=== PATIENT | male | born 1975 | race American Indian/Alaskan Native ===

== ENCOUNTER 2017-01-21 16:13 | Emergency (ER) | payer OTHER ==
--- NOTE | 2017-01-21 20:04 | Emergency Department Report ---
ED ENT HPI - General Chief complaint: Earache Stated complaint: RT EARACHE Time Seen by Provider: 01/21/17 19:57 Source: patient Mode of arrival: Ambulatory Limitations: No Limitations - History of Present Illness Initial comments: Pt reports R ear pain and drainage x 2 days. No URI sx or fevers. MD complaint: ear pain -: Gradual, days(s) (2) Location: R ear Severity: moderate Quality: aching Consistency: constant Improves with: none Worsens with: none Associated Symptoms: discharge from ear. denies: fever, cough, sore throat - Related Data Previous Rx's Medication Instructions Recorded Last Taken Type Neomy/Polymyx B/Hc Otic Susp 4 drops AD TID #1 bottle 01/21/17 Unknown Rx [Cortisporin (Otic) Susp] Allergies Allergy/AdvReac Type Severity Reaction Status Date / Time amoxicillin Allergy Hives Verified 01/21/17 17:07 ED Dental HPI - General Chief complaint: Earache Stated complaint: RT EARACHE Time Seen by Provider: 01/21/17 19:57 Source: patient Mode of arrival: Ambulatory Limitations: No Limitations - Related Data Previous Rx's Medication Instructions Recorded Last Taken Type Neomy/Polymyx B/Hc Otic Susp 4 drops AD TID #1 bottle 01/21/17 Unknown Rx [Cortisporin (Otic) Susp] Allergies Allergy/AdvReac Type Severity Reaction Status Date / Time amoxicillin Allergy Hives Verified 01/21/17 17:07 ED Review of Systems ROS: Stated complaint: RT EARACHE Other details as noted in HPI Comment: All other systems reviewed and negative Constitutional: denies: chills, fever Eyes: denies: eye pain, eye discharge, vision change ENT: ear pain. denies: throat pain Respiratory: denies: cough, shortness of breath, wheezing Cardiovascular: denies: chest pain, palpitations Endocrine: no symptoms reported Gastrointestinal: denies: abdominal pain, nausea, diarrhea Genitourinary: denies: urgency, dysuria Musculoskeletal: denies: back pain, joint swelling, arthralgia Skin: denies: rash, lesions Neurological: denies: headache, weakness, paresthesias Psychiatric: denies: anxiety, depression Hematological/Lymphatic: denies: easy bleeding, easy bruising ED Past Medical Hx - Past Medical History Previous Medical History?: No - Surgical History Additional Surgical History: L wrist - Social History Smoking Status: Current Every Day Smoker Substance Use Type: None - Medications Home Medications: Home Medications Medication Instructions Recorded Confirmed Last Taken Type Neomy/Polymyx B/Hc Otic Susp 4 drops AD TID #1 bottle 01/21/17 Unknown Rx [Cortisporin (Otic) Susp] ED Physical Exam - General Limitations: No Limitations General appearance: alert, in no apparent distress - Head Head exam: Present: atraumatic, normocephalic - Eye Eye exam: Present: normal appearance - ENT ENT exam: Present: mucous membranes moist, other (R ear canal shows findings c/ w otitis externa. TM normal.) - Neck Neck exam: Present: normal inspection - Respiratory Respiratory exam: Present: normal lung sounds bilaterally. Absent: respiratory distress - Cardiovascular Cardiovascular Exam: Present: regular rate, normal rhythm. Absent: systolic murmur, diastolic murmur, rubs, gallop - GI/Abdominal GI/Abdominal exam: Present: soft, normal bowel sounds - Rectal Rectal exam: Present: deferred - Extremities Exam Extremities exam: Present: normal inspection - Back Exam Back exam: Present: normal inspection - Neurological Exam Neurological exam: Present: alert, oriented X3 - Psychiatric Psychiatric exam: Present: normal affect, normal mood - Skin Skin exam: Present: warm, dry, intact, normal color. Absent: rash ED Course Vital Signs 01/21/17 17:04 Temperature 98.6 F Pulse Rate 80 Respiratory 18 Rate Blood Pressure 153/92 O2 Sat by Pulse 98 Oximetry - Reevaluation(s) Reevaluation #1: 01/21/17 20:02 NAD, stable for d/c. ED Medical Decision Making - Medical Decision Making Pt with OE. Will treat. - Differential Diagnosis OM, OE Critical care attestation.: If time is entered above; I have spent that time in minutes in the direct care of this critically ill patient, excluding procedure time. ED Disposition Clinical Impression: Right otitis externa Qualifiers: Otitis externa type: unspecified type Chronicity: acute Qualified Code(s): H60.501 - Unspecified acute noninfective otitis externa, right ear Disposition: DISCHARGED TO HOME OR SELFCARE Is pt being admited?: No Condition: Good Instructions: Otitis Externa (ED) Prescriptions: Neomy/Polymyx B/Hc Otic Susp [Cortisporin (Otic) Susp] 4 drops AD TID #1 bottle Referrals: PRIMARY CARE, [Primary Care Provider] - 3-5 Days Time of Disposition: 20:03
[2017-01-21 20:10] VITALS: BP 144/88
== END 2017-01-21 20:16 | disposition home or self-care (01) ==
LOC: ED 16:13
DX: H60.501 Unspecified acute noninfective otitis externa, right ear (principal); F17.200 Nicotine dependence, unspecified, uncomplicated; Z88.2 Allergy status to sulfonamides; Z98.890 Other specified postprocedural states
CPT/HCPCS: 99282

== ENCOUNTER 2017-11-23 00:39 | Emergency (ER) | payer OTHER ==
--- NOTE | 2017-11-23 04:52 | Emergency Department Report ---
HPI - General Chief Complaint: Dental/Oral Time Seen by Provider: 11/23/17 04:44 - HPI HPI: Patient here reports that he has toothache 2 days. He said he does not have a dentist. Pain is located to his right upper back tooth he said it needs to be pulled. Pain is 10 out of 10 and achy worse with eating. Denies any fever or chills. Denies any swelling to face. Denies any sore throat, nasal congestion or runny nose. Denies any cough or chest pain. Denies any shortness of breath. Patient said he has dental problems but he doesn't have a dentist and is having a lot of pain unlike to have some pain medication. ED Past Medical Hx - Past Medical History Previous Medical History?: No - Surgical History Past Surgical History?: Yes Additional Surgical History: L wrist - Family History Family history: hypertension - Social History Smoking Status: Current Every Day Smoker Substance Use Type: Alcohol - Medications Home Medications: Home Medications Medication Instructions Recorded Confirmed Last Taken Type Neomy/Polymyx B/Hc Otic Susp 4 drops AD TID #1 bottle 01/21/17 Unknown Rx [Cortisporin (Otic) Susp] Ciprofloxacin HCl [Ciprofloxacin 750 mg PO BID #20 tablet 02/04/17 Unknown Rx TAB] Fluconazole [Diflucan TAB] 200 mg PO QDAY #2 tablet 02/04/17 Unknown Rx Acetaminophen/Codeine [Tylenol 1 tab PO Q6H PRN 3 Days #12 tab 11/23/17 Unknown Rx /Codeine # 3 tab] Clindamycin HCl 300 mg PO Q8H 10 Days #30 capsule 11/23/17 Unknown Rx Ibuprofen [Motrin] 600 mg PO Q8H PRN 7 Days #21 tablet 11/23/17 Unknown Rx ED Review of Systems ROS: Stated complaint: TOOTHACHE Other details as noted in HPI Comment: All other systems reviewed and negative Constitutional: no symptoms reported ENT: dental pain. denies: ear pain, throat pain, congestion Cardiovascular: denies: chest pain, palpitations, dyspnea on exertion, edema, syncope, paroxysmal nocturnal dyspnea Gastrointestinal: denies: abdominal pain, nausea, vomiting, diarrhea, constipation Musculoskeletal: denies: back pain, joint swelling, arthralgia, myalgia Skin: denies: rash Neurological: denies: headache, weakness, numbness, paresthesias, confusion, abnormal gait, vertigo Physical Exam - Physical Exam Vital Signs: Vital Signs 11/23/17 01:46 Temperature 98.4 F Pulse Rate 95 H Respiratory 18 Rate Blood Pressure 134/92 O2 Sat by Pulse 96 Oximetry General: This is a 42-year-old male well-nourished well-developed in no acute distress. Physical Exam: Head: Normocephalic atraumatic Ears:BIateral TM pearly palma. Aníbal EAC with normal exam. No mastoid bone tenderness. Mouth: Moist, no pharyngeal erythema or exudate . No tonsillar erythema or exudate. UVULA midline and oral airways patent. No peritonsillar abscess. Patient with ecchymosis is teeth missing. Noted fractured tooth to #1 without any pulp exposure. Positive gingivitis. Positive caries. Neck: Nontender to palpate, supple, normal range of motion. No adenopathy. No c- spine tenderness. Nose: Bilateral nasal mucosa normal. maxillary and frontal sinuses non-tender to palpate. Eyes: Sclerae and conjunctiva without injection. Bilateral pupils equal and reactive to light. Bilateral lids are normal. Normal accommodation.BEOMI Lungs: Clear to auscultate bilaterally, no rhonchi wheezes or rales. Normal work of breathing and no chest wall tenderness CV: S1, S2. Regular rate and rhythm negative murmur. Capillary refill is less than 3 seconds Skin: Clean dry and intact, no rashes or lesions Psych: Normal mood and behavior ED Course Vital Signs 11/23/17 01:46 Temperature 98.4 F Pulse Rate 95 H Respiratory 18 Rate Blood Pressure 134/92 O2 Sat by Pulse 96 Oximetry - Reevaluation(s) Reevaluation #1: 11/23/17 06:33 Patient given Motrin 800 mg emergency room for toothache. ED Medical Decision Making - Medical Decision Making ED course: In here complaining of toothache that started been ongoing for a while. Found to have many teeth missing and with gingivitis, fractured tooth. I discussed the patient's that I can start him on antibiotic and manage his pain but he will need to go to a dentist to fix the underlying problem I discussed with him if he neglected to do so he can end up with heart disease, heart valve disease and her infection in his blood activity to organ failure and ultimately . I discussed with him FOR him to a dental clinic in the community and he will need to pay a sliding scale fee based on his income and they can evaluate and treat him appropriately. It was undescended discharge instruction and treatment plan. He was given Motrin 800 mg when necessary emergency room for pain and patient discharged from ED in stable condition with prescription for penicillin V, Motrin and Tylenol 3 and to follow-up at [facility]. Critical care attestation.: If time is entered above; I have spent that time in minutes in the direct care of this critically ill patient, excluding procedure time. ED Disposition Clinical Impression: Tooth ache, Gingivitis, Dental cavity Fracture, tooth Qualifiers: Encounter type: initial encounter Fracture type: closed Qualified Code(s): S02.5XXA - Fracture of tooth (traumatic), initial encounter for closed fracture Disposition: TO HOME OR SELFCARE Is pt being admited?: No Does the pt Need Aspirin: No Condition: Stable Instructions: Dental Caries (ED), Toothache (ED), Gingivitis (ED) Additional Instructions: Please follow discharge instructions and follow up with [facility] for management of inflamed gums, fractured tooth and dental caries with toothache. Failure to do this could lead to worsening gum disease, infection in your blood, infection in your heart, organ failure and ultimately . Please try and stop smoking as this is not good for your gums or in general. Do not drive or operate heavy machinery while taking Tylenol No. 3 as this medication causes drowsiness Gargle with Listerine mouthwash twice daily practice good oral hygiene by flossing daily with the remainder of your teeth that you have left. Prescriptions: Acetaminophen/Codeine [Tylenol /Codeine # 3 tab] 1 tab PO Q6H PRN 3 Days #12 tab PRN Reason: Toothache Clindamycin HCl 300 mg PO Q8H 10 Days #30 capsule Ibuprofen [Motrin] 600 mg PO Q8H PRN 7 Days #21 tablet PRN Reason: Pain Referrals: [facility] [Outside] - 11/27/17 Forms: Work/School Release Form(ED)
[2017-11-23] MEDS ORDERED: MOTRIN PO ONE (07:00)
[2017-11-23 07:11] VITALS: BP 123/80
== END 2017-11-23 07:12 | disposition home or self-care (01) ==
LOC: ED 00:39
DX: S02.5XXA Fracture of tooth (traumatic), initial encounter for closed fracture (principal); K02.9 Dental caries, unspecified; K05.10 Chronic gingivitis, plaque induced; F17.200 Nicotine dependence, unspecified, uncomplicated; Z88.1 Allergy status to other antibiotic agents; X58.XXXA Exposure to other specified factors, initial encounter; Y93.89 Activity, other specified; Y99.8 Other external cause status; Y92.89 Other specified places as the place of occurrence of the external cause
CPT/HCPCS: 99282

== ENCOUNTER 2021-07-30 18:42 | Emergency (ER) | payer SELFPAY ==
[2021-07-30 19:54] VITALS: BP 153/89
[2021-07-30] MEDS ORDERED: HYDROcodone/ACETAMINOPHEN 5-325 MG TAB PO ONE (19:56)
--- NOTE | 2021-07-30 20:16 | Emergency Department Report ---
ED ENT HPI - General Chief complaint: Earache Stated complaint: EAR INFECTION Time Seen by Provider: 07/30/21 20:07 Source: patient Mode of arrival: Ambulatory Limitations: No Limitations - History of Present Illness Initial comments: 45-year-old -Iranian male presents to the emergency room complaining of left ear pain and drainage for the last 2 days. Patient reports that he takes a shower in washes his ears out but sometimes water stays. 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 Patient states he noticed drainage with the odor. Patient denies any fever chills no nausea no vomiting. Patient does report has an allergy to amoxicillin and he smokes cigarettes. MD complaint: ear pain Onset/Timin -: days(s) Location: L ear Severity scale (0 -10): 7 Quality: stabbing, sharp Consistency: intermittent Improves with: none Worsens with: none Context- Ear: other (Labs were ordered to sit in his ears from shower) Associated Symptoms: discharge from ear (Left) - Related Data Previous Rx's Medication Instructions Recorded Last Taken Type Ciprofloxacin HCl [Ciprofloxacin 750 mg PO BID #20 tablet 02/04/17 Unknown Rx TAB] Fluconazole [Diflucan TAB] 200 mg PO QDAY #2 tablet 02/04/17 Unknown Rx Acetaminophen/Codeine [Tylenol 1 tab PO Q6H PRN 3 Days #12 tab 11/23/17 Unknown Rx /Codeine # 3 tab] Clindamycin HCl 300 mg PO Q8H 10 Days #30 capsule 11/23/17 Unknown Rx Ciprofloxacin HCl [Ciprofloxacin 750 mg PO BID 7 Days #14 tablet 07/30/21 Unknown Rx TAB] Ibuprofen [Motrin 600 MG tab] 600 mg PO Q8H PRN 7 Days #21 tablet 07/30/21 Unknown Rx Neomy/Polymyx B/Hc Otic Susp 4 drops AD TID #1 bottle 07/30/21 Unknown Rx [Cortisporin (Otic) Susp] Allergies Allergy/AdvReac Type Severity Reaction Status Date / Time amoxicillin Allergy Hives Verified 01/21/17 17:07 ED Dental HPI - General Chief complaint: Earache Stated complaint: EAR INFECTION Time Seen by Provider: 07/30/21 20:07 Source: patient Mode of arrival: Ambulatory Limitations: No Limitations - Related Data Previous Rx's Medication Instructions Recorded Last Taken Type Ciprofloxacin HCl [Ciprofloxacin 750 mg PO BID #20 tablet 02/04/17 Unknown Rx TAB] Fluconazole [Diflucan TAB] 200 mg PO QDAY #2 tablet 02/04/17 Unknown Rx Acetaminophen/Codeine [Tylenol 1 tab PO Q6H PRN 3 Days #12 tab 11/23/17 Unknown Rx /Codeine # 3 tab] Clindamycin HCl 300 mg PO Q8H 10 Days #30 capsule 11/23/17 Unknown Rx Ciprofloxacin HCl [Ciprofloxacin 750 mg PO BID 7 Days #14 tablet 07/30/21 Unknown Rx TAB] Ibuprofen [Motrin 600 MG tab] 600 mg PO Q8H PRN 7 Days #21 tablet 07/30/21 Unknown Rx Neomy/Polymyx B/Hc Otic Susp 4 drops AD TID #1 bottle 07/30/21 Unknown Rx [Cortisporin (Otic) Susp] Allergies Allergy/AdvReac Type Severity Reaction Status Date / Time amoxicillin Allergy Hives Verified 01/21/17 17:07 ED Review of Systems ROS: Stated complaint: EAR INFECTION Other details as noted in HPI Comment: All other systems reviewed and negative ED Past Medical Hx - Surgical History Additional Surgical History: L wrist - Social History Smoking Status: Current Every Day Smoker Substance Use Type: Alcohol - Medications Home Medications: Home Medications Medication Instructions Recorded Confirmed Last Taken Type Ciprofloxacin HCl [Ciprofloxacin 750 mg PO BID #20 tablet 02/04/17 Unknown Rx TAB] Fluconazole [Diflucan TAB] 200 mg PO QDAY #2 tablet 02/04/17 Unknown Rx Acetaminophen/Codeine [Tylenol 1 tab PO Q6H PRN 3 Days #12 tab 11/23/17 Unknown Rx /Codeine # 3 tab] Clindamycin HCl 300 mg PO Q8H 10 Days #30 capsule 11/23/17 Unknown Rx Ciprofloxacin HCl [Ciprofloxacin 750 mg PO BID 7 Days #14 tablet 07/30/21 Unknown Rx TAB] Ibuprofen [Motrin 600 MG tab] 600 mg PO Q8H PRN 7 Days #21 tablet 07/30/21 Unknown Rx Neomy/Polymyx B/Hc Otic Susp 4 drops AD TID #1 bottle 07/30/21 Unknown Rx [Cortisporin (Otic) Susp] ED Physical Exam - General Limitations: No Limitations General appearance: alert, in no apparent distress - Head Head exam: Present: atraumatic, normocephalic - Eye Eye exam: Present: normal appearance - Expanded ENT Exam Expanded TM/Canal exam: Canal Discharge: Left TM, Canal Tenderness: Left TM - Neck Neck exam: Present: normal inspection, full ROM - Respiratory Respiratory exam: Absent: accessory muscle use - Cardiovascular Cardiovascular Exam: Present: regular rate - Extremities Exam Extremities exam: Present: normal inspection - Back Exam Back exam: Present: normal inspection - Neurological Exam Neurological exam: Present: alert, oriented X3, normal gait - Psychiatric Psychiatric exam: Present: normal affect, normal mood - Skin Skin exam: Present: warm, dry, intact, normal color. Absent: rash ED Course Vital Signs 07/30/21 19:48 Temperature 32.1 F L Pulse Rate 96 H Respiratory 18 Rate Blood Pressure 153/89 O2 Sat by Pulse 97 Oximetry ED Medical Decision Making - Medical Decision Making 45-year-old -Iranian male presents to the emergency room complaining of left ear pain and drainage for the last 2 days. Patient reports that he takes a shower in washes his ears out but sometimes water stays. 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 Patient states he noticed drainage with the odor. Patient denies any fever chills no nausea no vomiting. Patient does report has an allergy to amoxicillin and he smokes cigarettes. Patient has a left otitis externa most likely Pseudomonas as it has a foul odor to the discharge. Patient be placed on Cipro 750 p.o. twice daily for 7 days and Cortisporin suspension eardrops. Patient referral to ear nose and throat. Tylenol or ibuprofen as needed for pain management. Critical care attestation.: If time is entered above; I have spent that time in minutes in the direct care of this critically ill patient, excluding procedure time. ED Disposition Clinical Impression: Otitis externa Disposition: HOME / SELF CARE / HOMELESS Is pt being admited?: No Does the pt Need Aspirin: No Condition: Stable Instructions: Ear Drops, Adult, [id number], Otitis Externa, [id number] Additional Instructions: Complete antibiotics as prescribed. Be sure to keep your ears clean and dry. Use eardrops as prescribed. Follow-up with ear nose and throat. Tylenol or ibuprofen as needed for pain Prescriptions: Ciprofloxacin HCl [Ciprofloxacin TAB] 750 mg PO BID 7 Days #14 tablet Neomy/Polymyx B/Hc Otic Susp [Cortisporin (Otic) Susp] 4 drops AD TID #1 bottle Ibuprofen [Motrin 600 MG tab] 600 mg PO Q8H PRN 7 Days #21 tablet PRN Reason: Pain Referrals: JAMSHID RIVERA MD [Referring] - 3-5 Days Time of Disposition: 20:24
== END 2021-07-30 20:53 | disposition home or self-care (01) ==
LOC: ED 18:42
DX: H60.92 Unspecified otitis externa, left ear (principal); F17.200 Nicotine dependence, unspecified, uncomplicated; Z88.0 Allergy status to penicillin; Z79.899 Other long term (current) drug therapy

== ENCOUNTER 2021-10-03 14:55 | Emergency (ER) | payer SELFPAY ==
[2021-10-03 16:20] VITALS: BP 110/71
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
== END 2021-10-03 18:08 | disposition home or self-care (01) ==
LOC: ED 14:55
DX: S16.1XXA Strain of muscle, fascia and tendon at neck level, initial encounter (principal); S39.012A Strain of muscle, fascia and tendon of lower back, initial encounter; M50.30 Other cervical disc degeneration, unspecified cervical region; M51.36 Other intervertebral disc degeneration, lumbar region; Z98.890 Other specified postprocedural states; F17.200 Nicotine dependence, unspecified, uncomplicated; Z88.0 Allergy status to penicillin; V89.2XXA Person injured in unspecified motor-vehicle accident, traffic, initial encounter; Y93.89 Activity, other specified; Y92.89 Other specified places as the place of occurrence of the external cause; Y99.8 Other external cause status
CPT/HCPCS: 72040; 72100; 99283